=== PATIENT | female | born 1995 | race Caucasian/White ===

== ENCOUNTER 2016-10-17 05:05 | Emergency (ER) | payer OTHER, BC ==
[~2016-10-17] VITALS: Ht 170.2 cm; Wt 81.8 kg
[2016-10-17 05:07] VITALS: TEMP 97.1
[2016-10-17] MEDS ORDERED: ANTIBIOTIC (05:10)
[2016-10-17] MEDS ORDERED: BIRTH CONTROL (05:10)
[2016-10-17] MEDS ORDERED: NORCO 325 MG-51 TAB PO (06:02)
[2016-10-17] MEDS ORDERED: MOTRIN 800800 MG/TAB PO (06:02)
[2016-10-17 06:19] VITALS: BP 119/82; PULSE 94
== END 2016-10-17 06:34 | disposition home or self-care (01) ==
LOC: COL.ER 05:05
DX: S06.0X0A Concussion without loss of consciousness, initial encounter (principal); S13.9XXA Sprain of joints and ligaments of unspecified parts of neck, initial encounter; S16.1XXA Strain of muscle, fascia and tendon at neck level, initial encounter; V48.5XXA Car driver injured in noncollision transport accident in traffic accident, initial encounter; Y92.410 Unspecified street and highway as the place of occurrence of the external cause; S63.502A Unspecified sprain of left wrist, initial encounter; S66.912A Strain of unspecified muscle, fascia and tendon at wrist and hand level, left hand, initial encounter